=== PATIENT | male | born 1935 | race Hispanic/Latino ===

== ENCOUNTER 2016-09-05 06:13 | Observation (INO) | payer MEDICARE ==
[2016-09-05] MEDS ORDERED: ECOTRIN PO ONE (06:44)
[2016-09-05] MEDS ORDERED: NACL 0.9% 500 ML 500 ML IV SCH (07:00)
[2016-09-05 07:22] LABS: Basophils % (Auto) 0.7 % (0.0-1.8); Eosinophils % (Auto) 4.4 % (0.0-4.3); Hematocrit 36.2 % (35.5-45.6); Hemoglobin 11.8 gm/dl (11.8-15.2); Mean Corpuscular HGB Conc 33 % (32-34); Mean Corpuscular Hemoglobin 29 pg (28-32); Mean Corpuscular Volume 90 fl (84-94); Platelet Count 215 K/mm3 (140-440); Red Blood Count 4.03 M/mm3 (3.65-5.03); White Blood Count 6.7 K/mm3 (4.5-11.0)
[2016-09-05 07:32] LABS: BUN/Creatinine Ratio 15.55; Blood Urea Nitrogen 14 mg/dL (9-20); Carbon Dioxide 26 mmol/L (22-30); Chloride 103.9 mmol/L (98-107); Glucose 118 mg/dL (75-100); Sodium 142 mmol/L (137-145)
[2016-09-05 07:36] LABS: INR 1.08 (0.87-1.13)
[2016-09-05 07:58] LABS: Anion Gap 17 mmol/L
[2016-09-05] MEDS ORDERED: HEPARIN/NS 5000 UNIT/500ML(CATH LAB) 1,000 ML IR ONE ×2 (09:02→14:03)
[2016-09-05] MEDS ORDERED: NITROGLYCERIN SYRINGE 3 ML ONE ×2 (09:03→14:04)
[2016-09-05] MEDS: XYLOCAINE 2% INFILTRATI ONE ×2 (09:09→09:33)
[2016-09-05] MEDS: VERSED ONE ×2 (09:09→09:30)
[2016-09-05] MEDS: SUBLIMAZE ONE ×2 (09:09→09:30)
[2016-09-05] MEDS: HEPARIN 10,000 UNITS/10 ML ONE ×4 (09:10→14:40)
[2016-09-05] MEDS: CALAN ONE ×2 (09:10→09:33)
--- NOTE | 2016-09-05 12:50 | Cardiac Catherization Report ---
LEFT HEART CATHETERIZATION ORDERING PHYSICIAN: Jose Nix MD INDICATION: Shortness of breath, abnormal myocardial perfusion scan revealing a moderate sized reversible inferior wall defect suggesting ischemia in the right coronary artery distribution. PROCEDURES PERFORMED: 1. Selective left and right coronary angiography. 2. Left ventriculography. DESCRIPTION OF PROCEDURE: After obtaining written consent, the patient was draped using sterile technique. A 2% lidocaine was injected into the right wrist. A 5-Romanian vascular sheath was inserted into the right radial artery. A 5-Romanian JL3.5 catheter was used to selectively engage the left coronary artery. A 5-Romanian JR4 catheter was used to selectively engage the right coronary artery. A 5-Romanian pigtail catheter was used to perform a left ventriculogram. No complications occurred during the procedure. Hemostasis was achieved at the end of the procedure using manual pressure. Specimen removed was none. Estimated blood loss was minimal. No complications occurred during the procedure. FINDINGS: 1. This is a right dominant circulation. 2. The left main is a short vessel with no evidence of obstructive disease. 3. The left anterior descending artery has evidence of a tubular 40% stenosis noted in the proximal segment, right at the takeoff of a large first diagonal artery. The distal LAD only has mild luminal irregularities. 4. The left circumflex artery has mild luminal irregularities with 10%-20% luminal stenosis. 5. The right coronary artery has evidence of a focal 90% stenosis in the mid segment. The remaining segments of the right coronary artery only has mild diffuse luminal irregularities. CARDIAC STRUCTURES: The left ventricle is normal in size. There is evidence of mild left ventricular systolic dysfunction with an ejection fraction estimated at 45%. There is evidence of mild inferior wall hypokinesis. There is evidence of severe mitral regurgitation noted by LV gram. The proximal aortic root is within normal limits. IMPRESSION: 1. Significant obstructive single vessel disease with a 90% focal stenosis of the mid right coronary artery. 2. Nonobstructive disease noted in the left anterior descending and left circumflex artery. 3. Severe mitral regurgitation by left ventriculogram. 4. Mild left ventricular dysfunction with an ejection fraction estimated at 45% and evidence of mild inferior wall hypokinesis. RECOMMENDATIONS: 1. Proceed with a transthoracic echocardiogram to further evaluate the severity of the mitral regurgitation. 2. Proceed with percutaneous coronary intervention depending on transthoracic echocardiogram findings. JOB# [id number] DIANA/FABIANO
[2016-09-05] MEDS ORDERED: HEPARIN 10,000 UNITS/10 ML ONE ×2 (14:03→14:38)
[2016-09-05] MEDS ORDERED: XYLOCAINE 2% INFILTRATI ONE (14:04)
[2016-09-05] MEDS ORDERED: SUBLIMAZE ONE (14:11)
[2016-09-05] MEDS ORDERED: VERSED ONE (14:11)
[2016-09-05] MEDS ORDERED: PLAVIX ONE (14:31)
[2016-09-05] MEDS ORDERED: ALUM-MAG HYDROX-SIMETH 200-200-20MG/5ML ONE (14:31)
--- NOTE | 2016-09-05 14:55 | Event Note ---
Date: 09/05/16 Patient is post successful outpatient PCI of the mid RCA. He is stable for discharge tomorrow morning. In addition to his home meds (including baby ASA) he needs Rx for; 1. Plavix 75 2. Procardia XL 30 3. Imdur 30 He can resume Metformin 48hrs post PCI. Follow up Dr Stanley 1 week.
[2016-09-05] MEDS ORDERED: NACL 0.9% 1000 ML 1,000 ML IV SCH (15:00)
--- NOTE | 2016-09-05 15:37 | Cardiac Catherization Report ---
CORONARY ANGIOPLASTY REPORT REASON FOR PROCEDURE: The patient is an 80-year-old man who presented for outpatient cardiac catheterization, was found to have a long, up to 85% stenosis of the mid segment of a dominant right coronary artery. He was recommended for coronary intervention. Comorbidities include chronic atrial fibrillation and a predominantly nonischemic cardiomyopathy, as well as valvular heart disease with mitral regurgitation. PROCEDURE: The patient was prepped and draped in a sterile fashion, after informed consent. Right femoral artery was entered using Seldinger technique followed by placement of a 6-Macedonian sheath. We selected a #4 right Bishop guiding catheter and advanced to the right coronary ostium. Pre-intervention angiograms were taken. A 0.014 inch guidewire was then introduced into right coronary artery across the lesional segment. Following wire placement, a 3.0 mm balloon catheter was used to predilate the lesion. We then deployed a 3.5 x 30 mm bare metal stent, covering the entire lesional segment. The stent was inflated to optimal pressures. Following stenting, there was an excellent angiographic result, 0 residual stenosis and KODY 3 flow was maintained down the vessel. There were no complications. A bare-metal stent was selected for the procedure. In recognition of the patient's chronic atrial fibrillation, has a requirement for a long-term oral anticoagulation. CONCLUSION: 1. Successful angioplasty and stenting of the mid right coronary artery. 2. Deployment of a 3.5 x 30 mm bare metal stent, excellent angiographic result. JOB# [id number] CHELA/FABIANO
[2016-09-05] MEDS: IMDUR PO SCH (18:19)
[2016-09-05] MEDS: PROCARDIA XL PO SCH (18:19)
[2016-09-05] MEDS: HCTZ PO SCH (18:19)
[2016-09-05] MEDS: ZESTRIL PO SCH (18:20)
[2016-09-05] MEDS: ZOCOR PO SCH (21:27)
[2016-09-06] MEDS: NITRO DUR TD SCH (05:15)
[2016-09-06 05:47] LABS: Basophils % (Auto) 0.4 % (0.0-1.8); Eosinophils % (Auto) 2.4 % (0.0-4.3); Hematocrit 32.5 % (35.5-45.6); Hemoglobin 10.7 gm/dl (11.8-15.2); Mean Corpuscular HGB Conc 33 % (32-34); Mean Corpuscular Hemoglobin 29 pg (28-32); Mean Corpuscular Volume 89 fl (84-94); Platelet Count 213 K/mm3 (140-440); Red Blood Count 3.65 M/mm3 (3.65-5.03); Red Cell Distribution Width 15.8 % (13.2-15.2); White Blood Count 8.1 K/mm3 (4.5-11.0)
[2016-09-06 06:12] LABS: Creatine Kinase MB 2.9 ng/mL (0.0-4.0)
[2016-09-06 06:15] LABS: Anion Gap 20 mmol/L; BUN/Creatinine Ratio 12.85; Blood Urea Nitrogen 9 mg/dL (9-20); Calcium 8.7 mg/dL (8.4-10.2); Carbon Dioxide 25 mmol/L (22-30); Chloride 103.3 mmol/L (98-107); Creatine Kinase 39 units/L (55-170); Glucose 126 mg/dL (75-100); Sodium 144 mmol/L (137-145)
[2016-09-06 06:16] LABS: Potassium 3.8 mmol/L (3.6-5.0)
[2016-09-06] MEDS: PROCARDIA XL PO SCH (09:51)
[2016-09-06] MEDS: FLOMAX PO SCH (09:51)
[2016-09-06] MEDS: ZESTRIL PO SCH (09:51)
[2016-09-06] MEDS: BABY ASPIRIN PO SCH (09:51)
[2016-09-06] MEDS: HCTZ PO SCH (09:52)
[2016-09-06] MEDS: IMDUR PO SCH (09:52)
[2016-09-06] MEDS: PLAVIX PO SCH (09:52)
--- NOTE | 2016-09-06 10:49 | XRay Report ---
AP CHEST :09/06/16 CLINICAL: Difficulty breathing. COMPARISON:None. FINDINGS: Normal heart and pulmonary vasculature. The lungs are normally expanded and clear. The bones and soft tissues are normal. IMPRESSION: Normal.
--- NOTE | 2016-09-06 11:30 | Progress Note ---
Assessment and Plan - Patient Problems (1) CAD (coronary artery disease) Current Visit: Yes Status: Acute Qualifiers: Coronary Disease-Associated Artery/Lesion type: C [place] vs. transplanted heart: N Associated angina: A (2) Obese Current Visit: Yes Status: Acute Qualifiers: Obesity type: O Obesity severity: O (3) Hematuria Current Visit: Yes Status: Acute Plan to address problem: GROSS HEMATURIA IN CARBALLO,,,WILL NOT D\C WITH THIS DEVELOPMENT Subjective Date of service: 09/06/16 Interval history: NO CV C\O Objective Vital Signs Temp Pulse Pulse Pulse Pulse Pulse Resp 09/06/16 10:00 09/06/16 08:40 98.3 F 89 18 09/06/16 06:00 65 09/06/16 05:28 97.6 F 76 18 09/06/16 00:58 98.2 F 71 20 09/05/16 22:17 83 22 09/05/16 21:15 09/05/16 20:30 83 20 09/05/16 19:57 98.6 F 51 L 20 09/05/16 19:50 55 L 20 09/05/16 19:20 83 20 09/05/16 18:45 75 16 09/05/16 18:30 67 14 09/05/16 18:20 85 09/05/16 18:19 85 09/05/16 18:15 85 12 09/05/16 18:00 77 15 09/05/16 17:55 60 20 09/05/16 17:49 72 19 09/05/16 17:44 68 14 09/05/16 17:39 56 L 17 09/05/16 17:34 65 12 09/05/16 17:15 75 9 L 09/05/16 16:45 62 13 09/05/16 16:15 68 14 09/05/16 15:45 62 18 09/05/16 15:30 60 16 09/05/16 15:15 51 L 18 09/05/16 15:00 63 15 09/05/16 12:30 62 12 09/05/16 12:00 60 20 09/05/16 11:30 59 L 19 BP BP Pulse Ox 09/06/16 10:00 94 09/06/16 08:40 135/74 93 09/06/16 06:00 09/06/16 05:28 121/58 97 06/17/17 00:58 114/70 98 09/05/16 22:17 105/63 09/05/16 21:15 93 09/05/16 20:30 105/63 09/05/16 19:57 173/79 94 09/05/16 19:50 140/73 09/05/16 19:20 154/85 09/05/16 18:45 182/94 96 09/05/16 18:30 179/93 96 09/05/16 18:20 170/80 09/05/16 18:19 170/80 09/05/16 18:15 170/80 98 09/05/16 18:00 159/84 98 09/05/16 17:55 153/100 98 09/05/16 17:49 169/91 98 09/05/16 17:44 179/99 98 09/05/16 17:39 172/90 98 09/05/16 17:34 171/105 95 09/05/16 17:15 180/95 95 09/05/16 16:45 167/71 98 09/05/16 16:15 172/85 99 09/05/16 15:45 180/92 98 09/05/16 15:30 173/87 98 09/05/16 15:15 176/94 97 09/05/16 15:00 177/87 99 09/05/16 12:30 179/95 95 09/05/16 12:00 164/95 100 09/05/16 11:30 171/95 99 - Physical Examination General: No Apparent Distress, Other (GROSS HEMATURIA FROM CARBALLO) HEENT: Positive: PERRL Neck: Positive: neck supple Cardiac: Positive: Reg Rate and Rhythm Lungs: Positive: clear to auscultation - Labs and Meds Cardiac Enzymes 09/06/16 Range/Units 04:55 CK-MB (CK-2) 2.9 (0.0-4.0) ng/mL CBC 09/06/16 Range/Units 04:55 WBC 8.1 (4.5-11.0) K/mm3 RBC 3.65 (3.65-5.03) M/mm3 Hgb 10.7 L (11.8-15.2) gm/dl Hct 32.5 L (35.5-45.6) % Plt Count 213 (140-440) K/mm3 Lymph # 0.6 L (1.2-5.4) K/mm3 [place] # 0.7 (0.0-0.8) K/mm3 Eos # 0.2 (0.0-0.4) K/mm3 Baso # 0.0 (0.0-0.1) K/mm3 Comprehensive Metabolic Panel 09/06/16 Range/Units 04:55 Sodium 144 (137-145) mmol/L Potassium 3.8 D (3.6-5.0) mmol/L Chloride 103.3 (98-107) mmol/L Carbon Dioxide 25 (22-30) mmol/L BUN 9 (9-20) mg/dL Creatinine 0.7 L (0.8-1.5) mg/dL Glucose 126 H (75-100) mg/dL Calcium 8.7 (8.4-10.2) mg/dL
[2016-09-06] MEDS: ZOCOR PO SCH (21:09)
[2016-09-07] MEDS: NITRO DUR TD SCH (06:29)
--- NOTE | 2016-09-07 10:12 | Progress Note ---
Assessment and Plan - Patient Problems (1) CAD (coronary artery disease) Current Visit: Yes Status: Acute Qualifiers: Coronary Disease-Associated Artery/Lesion type: C [place] vs. transplanted heart: N Associated angina: A Plan to address problem: STABLE POST PCI,,,,GROSS HEMATURIA RESOLVED,,,MILD ANEMIA NOTED...WILL D\C WITH I\OFFICE F\U THIS WK,,,REPEAT CBC IN OFFICE (2) Obese Current Visit: Yes Status: Acute Qualifiers: Obesity type: O Obesity severity: O (3) Hematuria Current Visit: Yes Status: Acute Subjective Date of service: 09/07/16 Interval history: no c\o Objective Vital Signs Temp Pulse Pulse Pulse Resp BP BP 09/07/16 08:47 86 09/07/16 08:45 97.7 F 57 L 20 113/57 09/07/16 08:43 09/07/16 06:29 86 128/61 09/07/16 05:04 98.2 F 86 20 128/64 09/07/16 00:34 98.2 F 78 18 113/56 09/06/16 22:00 68 09/06/16 20:26 09/06/16 20:18 97.9 F 82 18 131/58 09/06/16 16:00 97.6 F 95 H 18 117/64 09/06/16 13:26 97.6 F 96 H 18 145/60 Pulse Ox 09/07/16 08:47 09/07/16 08:45 95 09/07/16 08:43 93 09/07/16 06:29 09/07/16 05:04 93 09/07/16 00:34 94 09/06/16 22:00 09/06/16 20:26 91 09/06/16 20:18 95 09/06/16 16:00 97 09/06/16 13:26 98 - Physical Examination General: No Apparent Distress, Other (gross hematuria has cleared) HEENT: Positive: PERRL Neck: Positive: neck supple Cardiac: Positive: Reg Rate and Rhythm Lungs: Positive: clear to auscultation Abdomen: Positive: Unremarkable Extremities: Present: normal
[2016-09-07] MEDS: FLOMAX PO SCH (10:32)
[2016-09-07] MEDS: BABY ASPIRIN PO SCH (10:32)
[2016-09-07] MEDS: PLAVIX PO SCH (10:33)
[2016-09-07] MEDS: HCTZ PO SCH (10:33)
[2016-09-07] MEDS: ZESTRIL PO SCH (10:33)
[2016-09-07] MEDS: PROCARDIA XL PO SCH (10:33)
[2016-09-07] MEDS: IMDUR PO SCH (10:35)
--- NOTE | 2016-09-07 12:17 | Discharge Summary ---
Providers - Providers Date of Admission: 09/05/16 14:44 09/07 Date of discharge: 09/07/16 Attending physician: JOSE ROBERTO KING 09/05/16 Consult to Cardiac Rehabilitation [CONS] Routine Reason For Exam: post pci Primary care physician: NIDA MCCLAIN MD Hospitalization Reason for admission: CAD Condition: Fair Pertinent studies: +ANGIO Procedures: CATH & PCI Hospital course: PCI,,HEMATURIA Disposition: DC-01 TO HOME OR SELFCARE - Discharge Diagnoses (1) CAD (coronary artery disease) Status: Acute Qualifiers: Coronary Disease-Associated Artery/Lesion type: [place] artery [place] vs. transplanted heart: [place] heart Associated angina: with stable angina Qualified Code(s): I25.118 - Atherosclerotic heart disease of [place] coronary artery with other forms of angina pectoris (2) Obese Status: Acute Qualifiers: Obesity type: due to excess calories Obesity severity: O (3) Hematuria Status: Resolved (4) CAD (coronary artery disease) Status: Acute Qualifiers: Coronary Disease-Associated Artery/Lesion type: C [place] vs. transplanted heart: N Associated angina: A Core Measure Documentation - Palliative Care Palliative Care/ Comfort Measures: Not Applicable - Core Measures Any of the following diagnoses?: none Exam - Constitutional Vitals: Temp Pulse Resp BP Pulse Ox 98.4 F 94 H 20 130/63 100 09/07/16 12:06 09/07/16 12:06 09/07/16 12:06 09/07/16 12:06 09/07/16 12:06 General appearance: Present: obese - EENT Eyes: Present: PERRL - Neck Neck: Present: supple - Respiratory Respiratory effort: normal - Cardiovascular Rhythm: regular - Extremities Extremities: no ischemia, No edema Plan Activity: advance as tolerated Weight Bearing Status: Weight Bear as Tolerated Diet: low fat Follow up with: PRIMARY MD JOHNY [Primary Care Provider] - 7 Days
[2016-09-07 12:25] VITALS: BP 92/55
[2016-09-07] MEDS ORDERED: LOPRESSOR PO SCH (22:00)
[2016-09-08] MEDS ORDERED: GLUCOPHAGE XR PO SCH (08:00)
[2016-09-08] MEDS ORDERED: NON-FORMULARY (Metformin Hcl [Fortamet Er] 1,000 MG) PO SCH (10:00)
[2016-09-08] MEDS ORDERED: HALFPRIN EC PO SCH (10:00)
== END 2016-09-07 16:30 | disposition home or self-care (01) ==
LOC: OPU 06:13 → 4A 14:44
PROVIDERS: ADMIT Internal Medicine Cardiovascular Disease; ATTEND Internal Medicine
DX: I25.10 Atherosclerotic heart disease of native coronary artery without angina pectoris (principal); I48.2 Chronic atrial fibrillation; I42.9 Cardiomyopathy, unspecified; E66.9 Obesity, unspecified; R31.9 Hematuria, unspecified; I34.0 Nonrheumatic mitral (valve) insufficiency; E11.9 Type 2 diabetes mellitus without complications; E78.5 Hyperlipidemia, unspecified; I10 Essential (primary) hypertension; Z98.61 Coronary angioplasty status; Z72.0 Tobacco use
CPT/HCPCS: 36415; 71010; 80048; 82550; 82553; 82962; 84484; 85025; 85347; 85610; 85730; 92928; 93005; 93010; 93306; 93458; 96372; C1725; C1769; C1876; C1887; C1894; G0378; J1644; J2250; J3010; J7030; J7040; J1815; Q9967